=== PATIENT | female | born 1950 | race Two or more races ===

== ENCOUNTER 2020-10-01 21:59 | Inpatient (IN) | payer MEDICARE, OTHER ==
[~2020-10-01] VITALS: Ht 162.6 cm; Wt 74.8 kg
--- NOTE | 2020-10-01 22:30 | NUR ---
bibra 7 from home c/o sob, body aches, chills and chest pain x 4 days. pt aox4 rr even and unlabored. no respiratory distress noted. no nvd at this time. pt gowned and placed on monitor. per ra states family member covid results + today. pt waiting for md booth.
[2020-10-01 22:57] LABS: HEMOGLOBIN 12.9 g/dL (11.5-14.8)
--- NOTE | 2020-10-01 22:58 | NUR ---
covid/ influenza swab and blood work sent to lab
[2020-10-01 23:01] LABS: BASOPHILS # (AUTO) 0.1 /CMM (0.0-0.2); BASOPHILS % (AUTO) 0.9 % (0.0-2.0); EOSINOPHILS % (AUTO) 0.1 % (0.0-6.0); HEMATOCRIT 37 % (33-45); LYMPHOCYTES # (AUTO) 0.8 /CMM (0.8-4.8); LYMPHOCYTES % (AUTO) 9.8 % (20.0-44.0); MEAN CORPUSCULAR HGB CONC 34 g/dl (31.0-36.0); MEAN CORPUSCULAR VOLUME 84 fL (82-100); MONOCYTES # (AUTO) 0.7 /CMM (0.1-1.30); MONOCYTES % (AUTO) 8.1 % (2.0-12.0); NEUTROPHILS # (AUTO) 6.8 /CMM (1.8-8.9); NEUTROPHILS % (AUTO) 81.1 % (43.0-81.0); PLATELET COUNT (AUTO) 271 /CMM (150-450); RED BLOOD CELL COUNT(AUTO) 4.47 MIL/uL (4.0-5.2); WHITE BLOOD COUNT (AUTO) 8.4 K/uL (4.3-11.0)
[2020-10-01 23:16] LABS: B-TYPE NATRIURETIC PEPTIDE 348 PG/ML (0-125)
[2020-10-01 23:38] LABS: CALCIUM, SERUM 9.4 mg/dL (8.5-10.1); CREATININE 1.3 mg/dL (0.6-1.3); POTASSIUM 3.4 mmol/L (3.5-5.1)
[2020-10-01 23:44] LABS: ALBUMIN 3.6 g/dL (3.4-5.0); BILIRUBIN,TOTAL 0.5 mg/dL (0.2-1.0); TOTAL PROTEIN, SERUM 7.8 g/dL (6.4-8.2)
[2020-10-01] MEDS ORDERED: HYDR-4077 PO (23:47)
[2020-10-01 23:48] LABS: FERRITIN 172 ng/mL (8-388)
[2020-10-01] MEDS ORDERED: HYDR100T27 PO (23:55)
[2020-10-01] MEDS ORDERED: GLIP5TAB13 PO (23:55)
[2020-10-01] MEDS ORDERED: METO100T14 PO (23:55)
[2020-10-01] MEDS ORDERED: DILT-32 PO (23:55)
[2020-10-01] MEDS ORDERED: METF-442 PO (23:55)
[2020-10-01] MEDS ORDERED: LOSA100T31 PO (23:55)
[2020-10-01] MEDS ORDERED: HYDR25TA4 PO (23:55)
[2020-10-01] MEDS ORDERED: ASPI-1169 PO (23:55)
[2020-10-01] MEDS ORDERED: PRAV40TA3 PO (23:55)
--- NOTE | 2020-10-01 23:55 | NUR ---
med recon completed.
--- NOTE | 2020-10-02 00:27 | NUR ---
DR. LI PAGED PER ER ORDER.
[2020-10-02] MEDS ORDERED: IV NS 0.9% 500 ML IV ONE (00:30)
[2020-10-02] MEDS ORDERED: AZITHROMYCIN 500 MG in IV D5W 250 ML IV ONE (00:30)
[2020-10-02] MEDS ORDERED: CEFTRIAXONE 1GM BAG (ER ONLY) 1 GM/50 ML PIGGYBACK IV ONE (00:30)
[2020-10-02] MEDS ORDERED: CEFTRIAXONE 1GM BAG (ER ONLY) 50 ML IV ONE (00:34)
[2020-10-02] MEDS ORDERED: DEXTROSE 50%-WATER 50 ML DISP.SYRIN IV PRN (01:00)
[2020-10-02] MEDS ORDERED: ONDANSETRON HCL/PF 4 MG/2 ML VIAL IVP PRN (01:00)
[2020-10-02] MEDS ORDERED: MAGNESIUM HYDROXIDE 30 ML UDC PO PRN (01:00)
[2020-10-02] MEDS ORDERED: MAG HYDROX/AL HYDROX/SIMETH 30 ML UDC PO PRN (01:00)
[2020-10-02] MEDS ORDERED: Z GUARD REMEDY 2 OZ OINT TP PRN (01:00)
[2020-10-02] MEDS ORDERED: ACETAMINOPHEN 325 MG TABLET PO PRN (01:00)
[2020-10-02] MEDS ORDERED: ZOLPIDEM TARTRATE 5 MG TABLET PO PRN (01:00)
[2020-10-02] MEDS ORDERED: AZITHROMYCIN 500 MG VIAL ONE (01:21)
[2020-10-02] MEDS ORDERED: ENOXAPARIN SODIUM 40 MG/0.4 ML DISP.SYRIN SQ ONE (01:28)
[2020-10-02] MEDS ORDERED: ACETAMINOPHEN 325 MG TABLET ONE (01:28)
[2020-10-02] MEDS: ENOXAPARIN SODIUM 40 MG/0.4 ML DISP.SYRIN SQ SCH (01:35)
[2020-10-02] MEDS: IV NS 0.9% 1,000 ML IV PRN ×2 (01:35→22:59)
--- NOTE | 2020-10-02 03:06 | NUR ---
PT ASLEEP, NO ACUTE DISTRESS NOTED, RESP EVEN AND UNLABORED. PT REMAINS ON CARDIAC MONITORING, CONTINUOUS POX. CALL LIGHT WITHIN REACH. WILL CONTINUE TO MONITOR PT CLOSELY.
--- NOTE | 2020-10-02 07:19 | NUR ---
report given to EVERARDO Couch. no acute distress noted.
[2020-10-02] MEDS: BLOOD SUGAR DIAGNOSTIC 1 EACH STRIP IN SCH ×4 (07:30→22:33)
--- NOTE | 2020-10-02 08:00 | NUR ---
Status QUO. No obvious distress. Await admission
[2020-10-02] MEDS: PANTOPRAZOLE 40 MG TABLET.DR PO SCH (08:24)
[2020-10-02] MEDS ORDERED: INSULIN REGULAR, HUMAN 100 UNIT/ML 10 ML VIAL ONE (08:27)
[2020-10-02] MEDS: METFORMIN 500 MG TABLET PO SCH ×2 (08:52→17:34)
[2020-10-02] MEDS: hydrALAZINE HCL 50 MG TABLET PO SCH ×3 (08:53→17:34)
[2020-10-02] MEDS: DILTIAZEM HCL CD 120 MG PO SCH (08:53)
[2020-10-02] MEDS: DEXAMETHASONE SOD PHOSPHATE 10 MG/ML VIAL IV SCH (08:54)
[2020-10-02] MEDS: glipiZIDE 5 MG TABLET PO SCH ×2 (08:54→17:34)
[2020-10-02] MEDS: ASPIRIN 81 MG TAB.CHEW PO SCH (08:56)
[2020-10-02] MEDS ORDERED: HYDROCHLOROTHIAZIDE 25 MG TABLET PO SCH (09:00)
[2020-10-02] MEDS: INSULIN REGULAR, HUMAN 100 UNIT/ML 3 ML VIAL SQ PRN ×4 (09:06→22:41)
--- NOTE | 2020-10-02 13:12 | NUR ---
Able to get OOB-BRP. Made aware of plan of care. Tolerating diet well . No complaints at this time
--- NOTE | 2020-10-02 19:25 | NUR ---
Report to EVERARDO Graff for continuity of care
--- NOTE | 2020-10-02 20:43 | NUR ---
LAB CALLED REGARDING POSITIVE COVID RESULT
[2020-10-02] MEDS: ATORVASTATIN 40 MG TABLET PO SCH (22:24)
[2020-10-02] MEDS ORDERED: ATORVASTATIN 40 MG TABLET ONE (22:35)
[2020-10-02] MEDS ORDERED: HYDROCODONE/APAP 5/325MG TABLET ONE (22:52)
--- NOTE | 2020-10-02 22:55 | NUR ---
PT C/O BACK PAIN, WILL ADMINISTER NORCO 5/325MG PO X1 NOW
[2020-10-02] MEDS: HYDROCODONE/APAP 5/325MG TABLET PO PRN (23:00)
--- NOTE | 2020-10-02 23:45 | NUR ---
PT C/O CHEST AND BACK PAIN. MALLY HANSEN NP MADE AWARE
[2020-10-02] MEDS: CEFTRIAXONE 1 G in IV D5W 50 ML IV SCH (23:54)
--- NOTE | 2020-10-02 23:55 | NUR ---
FIRE PROTECTION DESIGNER AT BEDSIDE FOR BLOOD DRAW
[2020-10-03] MEDS ORDERED: NITROGLYCERIN 0.4 MG/TAB BOTTLE SL PRN
--- NOTE | 2020-10-03 00:21 | NUR ---
NO RELIEF OF PAIN WITH NITRO, PT STILL C/O 8/10 CHEST PAIN. MALLY HANSEN NP MADE AWARE. PER VERBAL MD ORDER, WILL ADMINISTER MORPHINE 2MG IV X1 NOW
[2020-10-03] MEDS ORDERED: ENOXAPARIN SODIUM 40 MG/0.4 ML DISP.SYRIN SQ ONE (00:43)
[2020-10-03] MEDS: AZITHROMYCIN 500 MG in IV D5W 250 ML IV SCH (00:59)
[2020-10-03] MEDS ORDERED: MORPHINE SULFATE INJ 2 MG/ML DISP.SYRIN IV ONE (01:00)
[2020-10-03] MEDS: ENOXAPARIN SODIUM 40 MG/0.4 ML DISP.SYRIN SQ SCH (01:00)
--- NOTE | 2020-10-03 02:13 | NUR ---
PT AMBULATORY TO RESTROOM WITH STEADY GAIT
[2020-10-03 06:16] LABS: BASOPHILS % (AUTO) 0.5 % (0.0-2.0); HEMATOCRIT 35 % (33-45); HEMOGLOBIN 11.8 g/dL (11.5-14.8); LYMPHOCYTES # (AUTO) 0.8 /CMM (0.8-4.8); LYMPHOCYTES % (AUTO) 24.5 % (20.0-44.0); MEAN CORPUSCULAR HGB CONC 34 g/dl (31.0-36.0); MEAN CORPUSCULAR VOLUME 84 fL (82-100); MONOCYTES # (AUTO) 0.5 /CMM (0.1-1.30); MONOCYTES % (AUTO) 14.6 % (2.0-12.0); NEUTROPHILS # (AUTO) 1.9 /CMM (1.8-8.9); NEUTROPHILS % (AUTO) 60.4 % (43.0-81.0); PLATELET COUNT (AUTO) 209 /CMM (150-450); RED BLOOD CELL COUNT(AUTO) 4.11 MIL/uL (4.0-5.2); WHITE BLOOD COUNT (AUTO) 3.2 K/uL (4.3-11.0)
[2020-10-03 06:26] LABS: CALCIUM, SERUM 8.9 mg/dL (8.5-10.1); CREATININE 0.8 mg/dL (0.6-1.3); MAGNESIUM 1.4 mg/dL (1.8-2.4); PHOSPHORUS 3.6 mg/dL (2.5-4.9); POTASSIUM 3.1 mmol/L (3.5-5.1)
[2020-10-03 06:29] LABS: THYROID STIMULATING HORMONE 0.559 uIU/mL (0.358-3.74); URIC ACID 3.9 mg/dL (2.6-7.2)
--- NOTE | 2020-10-03 07:26 | NUR ---
REPORT GIVEN TO EVERARDO GARCIA FOR GABINO
[2020-10-03] MEDS: PANTOPRAZOLE 40 MG TABLET.DR PO SCH (08:30)
[2020-10-03] MEDS: hydrALAZINE HCL 50 MG TABLET PO SCH ×3 (08:42→16:03)
[2020-10-03] MEDS: BLOOD SUGAR DIAGNOSTIC 1 EACH STRIP IN SCH ×4 (08:42→23:14)
[2020-10-03] MEDS: DEXAMETHASONE SOD PHOSPHATE 10 MG/ML VIAL IV SCH (08:42)
[2020-10-03] MEDS: ASPIRIN 81 MG TAB.CHEW PO SCH (08:43)
[2020-10-03] MEDS: METFORMIN 500 MG TABLET PO SCH ×2 (08:43→16:03)
[2020-10-03] MEDS: glipiZIDE 5 MG TABLET PO SCH ×2 (08:43→16:03)
[2020-10-03] MEDS: DILTIAZEM HCL CD 120 MG PO SCH (08:43)
[2020-10-03] MEDS: INSULIN REGULAR, HUMAN 100 UNIT/ML 3 ML VIAL SQ PRN ×3 (09:06→20:25)
--- NOTE | 2020-10-03 09:22 | NUR ---
BREAKFAST TRAY PROVIDED. TOLERATING PO WELL.
--- NOTE | 2020-10-03 11:16 | NUR ---
PATIENT IN BED ASLEEP, EASILY AROUSABLE BY VOICE. HOOEKD TO MONITOR. WILL CONTINUE TO MONITOR ACCORDINGLY.
[2020-10-03] MEDS: Magnesium 1GM/D5W 100ML PREMIX 100 ML IV SCH ×4 (11:30→14:30)
[2020-10-03] MEDS ORDERED: POTASSIUM CHLORIDE 20 MEQ TAB.PRT.SR PO ONE (11:30)
--- NOTE | 2020-10-03 12:26 | NUR ---
LUNCH TRAY PROVIDED. TOLERATING PO WELL.
--- NOTE | 2020-10-03 15:12 | NUR ---
PATIENT IN BED ASLEEP. EASILY AROUSABLE BY VOICE. HOOKED TO MONITOR. VSS. WILL CONTINUE TO MONITOR
[2020-10-03] MEDS ORDERED: HYDROCODONE/APAP 5/325MG TABLET ONE (15:16)
[2020-10-03] MEDS: HYDROCODONE/APAP 5/325MG TABLET PO PRN (15:19)
--- NOTE | 2020-10-03 19:30 | NUR ---
ASSUMED CARE OF PT. HERE FOR COVID PNA. PT ON 2L NC. TOLERATED, -SOB/ RR EVEN UNLABORED. PT CONT B&B, USES CALL LIGHT FOR HELP. PT AAOX4, AMBULATORY WITH STEADY GAIT. VSS. NAD. WCTM
[2020-10-03] MEDS: ATORVASTATIN 40 MG TABLET PO SCH (23:14)
[2020-10-04] MEDS: CEFTRIAXONE 1 G in IV D5W 50 ML IV SCH (00:08)
[2020-10-04] MEDS: INSULIN REGULAR, HUMAN 100 UNIT/ML 3 ML VIAL SQ PRN ×5 (00:10→22:34)
[2020-10-04] MEDS: ENOXAPARIN SODIUM 40 MG/0.4 ML DISP.SYRIN SQ SCH (01:44)
[2020-10-04] MEDS: AZITHROMYCIN 500 MG in IV D5W 250 ML IV SCH (01:44)
--- NOTE | 2020-10-04 05:38 | NUR ---
NO ACUTE EVENTS NOTED. -SOB, RR EVEN UNLABORED, CONT ON O2 2LPM NC. VSS, WCTM
[2020-10-04 06:03] LABS: BASOPHILS % (AUTO) 0.4 % (0.0-2.0); HEMATOCRIT 37 % (33-45); HEMOGLOBIN 12.3 g/dL (11.5-14.8); LYMPHOCYTES # (AUTO) 0.5 /CMM (0.8-4.8); LYMPHOCYTES % (AUTO) 8.6 % (20.0-44.0); MEAN CORPUSCULAR HGB CONC 33 g/dl (31.0-36.0); MEAN CORPUSCULAR VOLUME 86 fL (82-100); MONOCYTES # (AUTO) 0.6 /CMM (0.1-1.30); MONOCYTES % (AUTO) 9.4 % (2.0-12.0); NEUTROPHILS % (AUTO) 81.6 % (43.0-81.0); PLATELET COUNT (AUTO) 234 /CMM (150-450); RED BLOOD CELL COUNT(AUTO) 4.34 MIL/uL (4.0-5.2); WHITE BLOOD COUNT (AUTO) 6.1 K/uL (4.3-11.0)
[2020-10-04 06:14] LABS: CALCIUM, SERUM 9.4 mg/dL (8.5-10.1); CREATININE 1.1 mg/dL (0.6-1.3); PHOSPHORUS 2.4 mg/dL (2.5-4.9); POTASSIUM 3.6 mmol/L (3.5-5.1)
[2020-10-04] MEDS ORDERED: HYDROCODONE/APAP 5/325MG TABLET ONE ×2 (07:59→13:26)
[2020-10-04] MEDS: HYDROCODONE/APAP 5/325MG TABLET PO PRN ×2 (08:09→13:27)
[2020-10-04] MEDS: BLOOD SUGAR DIAGNOSTIC 1 EACH STRIP IN SCH ×4 (08:30→22:31)
[2020-10-04] MEDS: PANTOPRAZOLE 40 MG TABLET.DR PO SCH (08:30)
--- NOTE | 2020-10-04 08:30 | NUR ---
provided with breakfast ate 75%
[2020-10-04] MEDS: hydrALAZINE HCL 50 MG TABLET PO SCH ×3 (08:37→18:00)
[2020-10-04] MEDS: METFORMIN 500 MG TABLET PO SCH ×2 (08:37→18:00)
[2020-10-04] MEDS: DILTIAZEM HCL CD 120 MG PO SCH (08:58)
[2020-10-04] MEDS: DEXAMETHASONE SOD PHOSPHATE 10 MG/ML VIAL IV SCH (08:58)
[2020-10-04] MEDS: ASPIRIN 81 MG TAB.CHEW PO SCH (08:58)
[2020-10-04] MEDS: glipiZIDE 5 MG TABLET PO SCH ×2 (08:59→18:00)
[2020-10-04] MEDS ORDERED: NEUTRA PHOS 1 POWD.PACKET PO ONE (12:30)
--- NOTE | 2020-10-04 12:30 | NUR ---
provided with lunch ate 80%
--- NOTE | 2020-10-04 16:10 | NUR ---
assisted pt to the bathroom. bed sheets changed and replaced. kept clean and dry.
--- NOTE | 2020-10-04 18:30 | NUR ---
provided with dinner ate 80%
[2020-10-04] MEDS ORDERED: ATORVASTATIN 40 MG TABLET ONE (22:33)
[2020-10-04] MEDS: ATORVASTATIN 40 MG TABLET PO SCH (22:40)
[2020-10-05] MEDS: CEFTRIAXONE 1 G in IV D5W 50 ML IV SCH (00:10)
[2020-10-05] MEDS: AZITHROMYCIN 500 MG in IV D5W 250 ML IV SCH (01:11)
[2020-10-05] MEDS: ENOXAPARIN SODIUM 40 MG/0.4 ML DISP.SYRIN SQ SCH (01:12)
[2020-10-05 05:31] LABS: BASOPHILS % (AUTO) 0.1 % (0.0-2.0); HEMATOCRIT 37 % (33-45); HEMOGLOBIN 12.5 g/dL (11.5-14.8); LYMPHOCYTES # (AUTO) 0.7 /CMM (0.8-4.8); LYMPHOCYTES % (AUTO) 6.8 % (20.0-44.0); MEAN CORPUSCULAR HGB CONC 34 g/dl (31.0-36.0); MEAN CORPUSCULAR VOLUME 85 fL (82-100); MONOCYTES # (AUTO) 0.9 /CMM (0.1-1.30); MONOCYTES % (AUTO) 8.8 % (2.0-12.0); NEUTROPHILS # (AUTO) 8.5 /CMM (1.8-8.9); NEUTROPHILS % (AUTO) 84.3 % (43.0-81.0); PLATELET COUNT (AUTO) 277 /CMM (150-450); RED BLOOD CELL COUNT(AUTO) 4.37 MIL/uL (4.0-5.2); WHITE BLOOD COUNT (AUTO) 10.1 K/uL (4.3-11.0)
[2020-10-05 06:05] LABS: BILIRUBIN,TOTAL 0.2 mg/dL (0.2-1.0); CALCIUM, SERUM 9.2 mg/dL (8.5-10.1); MAGNESIUM 1.6 mg/dL (1.8-2.4); PHOSPHORUS 2.8 mg/dL (2.5-4.9); POTASSIUM 4.3 mmol/L (3.5-5.1); TOTAL PROTEIN, SERUM 7.1 g/dL (6.4-8.2)
--- NOTE | 2020-10-05 08:00 | NUR ---
breakfast provided ate 75%
[2020-10-05] MEDS: hydrALAZINE HCL 50 MG TABLET PO SCH ×3 (08:11→16:00)
[2020-10-05] MEDS: METFORMIN 500 MG TABLET PO SCH ×2 (08:11→16:31)
[2020-10-05] MEDS: glipiZIDE 5 MG TABLET PO SCH ×2 (08:17→16:31)
[2020-10-05] MEDS: DEXAMETHASONE SOD PHOSPHATE 10 MG/ML VIAL IV SCH (08:17)
[2020-10-05] MEDS: ASPIRIN 81 MG TAB.CHEW PO SCH (08:17)
[2020-10-05] MEDS: PANTOPRAZOLE 40 MG TABLET.DR PO SCH (08:17)
[2020-10-05] MEDS: DILTIAZEM HCL CD 120 MG PO SCH (08:17)
[2020-10-05] MEDS: BLOOD SUGAR DIAGNOSTIC 1 EACH STRIP IN SCH ×4 (08:24→22:09)
[2020-10-05] MEDS: INSULIN REGULAR, HUMAN 100 UNIT/ML 3 ML VIAL SQ PRN ×3 (09:16→18:35)
--- NOTE | 2020-10-05 10:00 | NUR ---
assisted to the bathroom bed sheets replaced. kept clean and dry.
[2020-10-05] MEDS: Magnesium 1GM/D5W 100ML PREMIX 100 ML IV SCH ×2 (11:00→12:00)
[2020-10-05] MEDS: HYDROCODONE/APAP 5/325MG TABLET PO PRN (11:15)
[2020-10-05] MEDS: METOPROLOL TARTRATE 50 MG TABLET PO SCH ×2 (13:43→21:26)
--- NOTE | 2020-10-05 20:00 | NUR ---
PT AAOX4, VSS. RESPIRATIONS EVEN AND UNLABORED ON RA W/ NAD NOTED. PT ON SUPPLEMENTAL O2 3 L N/C.PT HAS NO COMPLAINTS AT THIS TIME. DENIES PAIN AND SOB. WILL CONTINUE TO MONITOR ACCORDINGLY
[2020-10-05] MEDS ORDERED: METOPROLOL TARTRATE 50 MG TABLET ONE (21:22)
[2020-10-05] MEDS: ATORVASTATIN 40 MG TABLET PO SCH (22:18)
[2020-10-06] MEDS: CEFTRIAXONE 1 G in IV D5W 50 ML IV SCH (00:24)
--- NOTE | 2020-10-06 00:29 | NUR ---
Patient is resting comfortably in bed with eyes closed. Easily aroused. VSS
[2020-10-06] MEDS: ENOXAPARIN SODIUM 40 MG/0.4 ML DISP.SYRIN SQ SCH (01:12)
[2020-10-06] MEDS: AZITHROMYCIN 500 MG in IV D5W 250 ML IV SCH (01:12)
[2020-10-06 07:05] LABS: CALCIUM, SERUM 8.9 mg/dL (8.5-10.1); CREATININE 0.9 mg/dL (0.6-1.3); MAGNESIUM 1.7 mg/dL (1.8-2.4); POTASSIUM 3.8 mmol/L (3.5-5.1)
[2020-10-06] MEDS ORDERED: DEXAMETHASONE SOD PHOSPHATE 10 MG/ML VIAL ONE (07:56)
[2020-10-06] MEDS ORDERED: PANTOPRAZOLE 40 MG TABLET.DR PO SCH (07:59)
[2020-10-06] MEDS ORDERED: DILTIAZEM HCL CD 120 MG ONE (08:06)
[2020-10-06] MEDS ORDERED: glipiZIDE 10 MG TABLET ONE (08:06)
[2020-10-06] MEDS ORDERED: METFORMIN XR 500 MG TAB.SR.24H PO ONE (08:06)
[2020-10-06] MEDS ORDERED: PANTOPRAZOLE 40 MG TABLET.DR PO ONE (08:06)
[2020-10-06] MEDS ORDERED: METOPROLOL TARTRATE 50 MG TABLET ONE (08:07)
[2020-10-06] MEDS ORDERED: ASPIRIN 81 MG TAB.CHEW ONE (08:07)
[2020-10-06] MEDS: INSULIN REGULAR, HUMAN 100 UNIT/ML 3 ML VIAL SQ PRN ×2 (08:10→13:06)
[2020-10-06] MEDS: BLOOD SUGAR DIAGNOSTIC 1 EACH STRIP IN SCH ×2 (08:28→11:57)
[2020-10-06] MEDS: DILTIAZEM HCL CD 120 MG PO SCH (08:29)
[2020-10-06] MEDS: METFORMIN 500 MG TABLET PO SCH (08:29)
[2020-10-06] MEDS: hydrALAZINE HCL 50 MG TABLET PO SCH ×2 (08:30→12:25)
[2020-10-06] MEDS: METOPROLOL TARTRATE 50 MG TABLET PO SCH (08:30)
[2020-10-06] MEDS: glipiZIDE 5 MG TABLET PO SCH (08:30)
[2020-10-06] MEDS ORDERED: DEXAMETHASONE SOD PHOSPHATE 10 MG/ML VIAL IV SCH (09:00)
[2020-10-06] MEDS ORDERED: ASPIRIN 81 MG TAB.CHEW PO SCH (09:00)
--- NOTE | 2020-10-06 09:02 | NUR ---
Patient sitting at the edge of the bed, eating breakfast and tolerated well. Connected to the monitor and pulse ox. Kept comfortable, will continue to monitor accordingly.
[2020-10-06] MEDS: Magnesium 1GM/D5W 100ML PREMIX 100 ML IV SCH ×2 (10:00→11:00)
[2020-10-06] MEDS ORDERED: Magnesium 1GM/D5W 100ML PREMIX 200 ML IV ONE (10:03)
[2020-10-06] MEDS ORDERED: DEXA4TAB PO (12:48)
[2020-10-06] MEDS ORDERED: APIX5TAB PO (12:53)
--- NOTE | 2020-10-06 13:37 | NUR ---
PATIENT A/OX4, BREATHING EVEN AND UNLABORED, ON ROOM AIR WITH SPO2 SHOWS 95% WHILE RESTING. AND AFTER AMBULATION PATIENT REMAINS TO BE ON 95% SPO2 ON ROOM AIR. SRAVAN ARGUETA NP MADE AWARE. PATIENT DOES NOT MEET THE CRITERIA FOR OXYGEN TANK.
[2020-10-06] MEDS ORDERED: LEVO500T90 PO (14:22)
[2020-10-06 17:06] VITALS: BP 145/80
--- NOTE | 2020-10-06 17:06 | NUR ---
Patient discharged to home in stable condition. Written and verbal after care instructions given. Patient verbalizes understanding of instruction.IV removed. Catheter intact and site benign. Pressure and 4x4 applied to site. No bleeding noted.
[2020-10-06] MEDS ORDERED: ENOXAPARIN SODIUM 40 MG/0.4 ML DISP.SYRIN SQ SCH (21:00)
== END 2020-10-06 17:06 | disposition home or self-care (01) | DRG 177 ==
LOC: ER 22:01 → TRANSITION 10-02 00:27
PROVIDERS: ADMIT Student in an Organized Health Care Education/Training Program; ATTEND Nurse Practitioner Acute Care
DX: U07.1 COVID-19 (principal); J12.89 Other viral pneumonia; J96.01 Acute respiratory failure with hypoxia; N17.9 Acute kidney failure, unspecified; E22.2 Syndrome of inappropriate secretion of antidiuretic hormone; I48.20 Chronic atrial fibrillation, unspecified; Z79.82 Long term (current) use of aspirin; Z79.84 Long term (current) use of oral hypoglycemic drugs; Z79.899 Other long term (current) drug therapy; E11.22 Type 2 diabetes mellitus with diabetic chronic kidney disease; I12.9 Hypertensive chronic kidney disease with stage 1 through stage 4 chronic kidney disease, or unspecified chronic kidney disease; N18.9 Chronic kidney disease, unspecified; E86.0 Dehydration; T50.2X5A Adverse effect of carbonic-anhydrase inhibitors, benzothiadiazides and other diuretics, initial encounter; Y92.9 Unspecified place or not applicable; E87.6 Hypokalemia; E83.42 Hypomagnesemia; M89.9 Disorder of bone, unspecified; E66.9 Obesity, unspecified; Z68.28 Body mass index [BMI] 28.0-28.9, adult
CPT/HCPCS: 36415; 71045-TC; 80048-TC; 80053-TC; 80061-TC; 82533; 82728-TC; 82962-TC; 83735-TC; 83880; 84100-TC; 84443-TC; 84484-TC; 84550-TC; 85025-TC; 85378-TC; 86140-TC; 87040-TC; 87081-TC; 93307-TC; G0378; J0456; J0696; J1100; J1650; J1815; J2270; J2405; J3475; J7030; J7040; J7060; U0003